=== PATIENT | female | born 1970 | race Caucasian/White ===

== ENCOUNTER 2016-07-19 09:09 | Emergency (ER) | payer OTHER | END 2016-07-19 10:52 | disposition home or self-care (01) | LOC: ER 09:09 | DX: J42 Unspecified chronic bronchitis (principal); J84.9 Interstitial pulmonary disease, unspecified; R05 Cough; F17.210 Nicotine dependence, cigarettes, uncomplicated | CPT/HCPCS: 71020; 87070; 87400; 87880; 96372; 99283-25; J2930 ==

== ENCOUNTER 2016-09-09 15:11 | Emergency (ER) | payer OTHER ==
[2016-09-09 15:54] LABS: URINE BILIRUBIN NEGATIVE (NEGATIVE); URINE BLOOD 3+ (NEGATIVE); URINE GLUCOSE (UA) NORMAL (NORMAL); URINE KETONE NEGATIVE (NEGATIVE); URINE LEUKOCYTE ESTERASE 1+ (NEGATIVE); URINE NITRATE NEGATIVE (NEGATIVE); URINE PROTEIN 1+ (NEGATIVE); UROBILINOGEN NORMAL mg/dL (<1.0)
[2016-09-09 16:12] LABS: URINE RBC TNTC /[HPF] (0-2)
[2016-09-09 16:13] LABS: URINE BACTERIA TRACE (NONE SEEN); URINE SQUAMOUS EPITHELIAL CELL 0-10 /[HPF] (NONE SEEN)
[2016-09-09 18:26] LABS: BASO % 0.3 % (0.1-1.2); EOS # 0.1 10_X3_uL (0.0-0.4); EOS % 0.9 % (0.7-5.8); GRAN # 7.7 10_X3_uL (1.6-6.1); GRAN % 64.7 % (34.0-71.1); HEMATOCRIT 42.9 % (34-45); HEMOGLOBIN 14.6 g/dL (11.2-15.7); LYMPH # 2.9 10_X3_uL (1.2-3.7); MEAN CORPUSCULAR HEMOGLOBIN 32.5 pg (27.0-33.0); MEAN CORPUSCULAR VOLUME 95.5 fL (79-95); MEAN PLATELET VOLUME 10.7 fl (7.5-11.5); MONO # 1.2 10_X3_uL (0.2-0.9); MONO % 10.1 % (4.7-12.5); PLATELET COUNT 307 x10_3/uL (182-369); RED BLOOD COUNT 4.49 x10_6/uL (3.9-5.2); RED CELL DISTRIBUTION WIDTH 14.1 % (11.7-14.4); WHITE BLOOD COUNT 11.9 x10_3/uL (4.0-10.0)
[2016-09-09 18:51] LABS: BLOOD UREA NITROGEN 17 mg/dL (7-18); CALCIUM 9.5 mg/dL (8.7-10.7); CARBON DIOXIDE 24 mmol/L (21-32); CREATININE 0.6 mg/dL (0.6-1.3); GLUCOSE,RANDOM 88 mg/dL (70-99); POTASSIUM 4.1 mmol/L (3.5-5.1); SODIUM 142 mmol/L (136-145)
== END 2016-09-09 16:59 | disposition home or self-care (01) ==
LOC: ER 15:11
PROVIDERS: Emergency Medicine
DX: N20.1 Calculus of ureter (principal); R78.81 Bacteremia; R10.9 Unspecified abdominal pain; R30.0 Dysuria; K21.9 Gastro-esophageal reflux disease without esophagitis; E11.9 Type 2 diabetes mellitus without complications; I10 Essential (primary) hypertension; F41.9 Anxiety disorder, unspecified; G89.29 Other chronic pain; E78.5 Hyperlipidemia, unspecified; Z87.442 Personal history of urinary calculi; Z90.710 Acquired absence of both cervix and uterus; F17.210 Nicotine dependence, cigarettes, uncomplicated; Z88.0 Allergy status to penicillin; Z88.5 Allergy status to narcotic agent; Z79.899 Other long term (current) drug therapy; Z79.891 Long term (current) use of opiate analgesic; Z79.82 Long term (current) use of aspirin; Z79.84 Long term (current) use of oral hypoglycemic drugs
CPT/HCPCS: 36415; 74150; 80048; 81001; 85025; 87086; 96372; 99070; 99283-25

== ENCOUNTER 2017-01-10 18:44 | Observation (INO) | payer OTHER ==
[~2017-01-10] VITALS: Ht 149.9 cm; Wt 67.0 kg
[2017-01-10 19:42] LABS: BASO % 0.2 % (0.1-1.2); EOS % 0.3 % (0.7-5.8); GRAN % 91.4 % (34.0-71.1); HEMATOCRIT 42.4 % (34-45); HEMOGLOBIN 14.3 g/dL (11.2-15.7); LYMPH # 0.5 10_X3_uL (1.2-3.7); LYMPH % 4.9 % (19.3-51.7); MEAN CORPUSCULAR HEMOGLOBIN 32.1 pg (27.0-33.0); MEAN CORPUSCULAR HGB CONC 33.7 g/dL (32.0-36.0); MEAN CORPUSCULAR VOLUME 95.1 fL (79-95); MEAN PLATELET VOLUME 10.9 fl (7.5-11.5); MONO # 0.4 10_X3_uL (0.2-0.9); MONO % 3.2 % (4.7-12.5); PLATELET COUNT 238 x10_3/uL (182-369); RED BLOOD COUNT 4.46 x10_6/uL (3.9-5.2); RED CELL DISTRIBUTION WIDTH 14.1 % (11.7-14.4); WHITE BLOOD COUNT 10.9 x10_3/uL (4.0-10.0)
[2017-01-10 19:55] LABS: ALBUMIN 3.9 gm/dL (3.4-5.0); ALKALINE PHOSPHATASE 141 U/L (50-136); ALT/SGPT 106 U/L (3.5-33.9); AST/SGOT 99 U/L (7.04-26.96); BILIRUBIN,TOTAL 1.27 mg/dL (0.0-1.0); BLOOD UREA NITROGEN 9 mg/dL (7-18); CARBON DIOXIDE 24 mmol/L (21-32); CREATININE < 0.5 mg/dL (0.6-1.3); GLUCOSE,RANDOM 112 mg/dL (70-99); POTASSIUM 3.1 mmol/L (3.5-5.1); SODIUM 137 mmol/L (136-145); TOTAL PROTEIN 7.2 gm/dL (6.4-8.2)
[2017-01-11 07:13] LABS: HEMATOCRIT 39.4 % (34-45); HEMOGLOBIN 13.3 g/dL (11.2-15.7); MEAN CORPUSCULAR HGB CONC 33.8 g/dL (32.0-36.0); MEAN CORPUSCULAR VOLUME 94.7 fL (79-95); RED BLOOD COUNT 4.16 x10_6/uL (3.9-5.2); RED CELL DISTRIBUTION WIDTH 14.1 % (11.7-14.4); WHITE BLOOD COUNT 5.3 x10_3/uL (4.0-10.0)
[2017-01-11 07:33] LABS: AHDL CHOLESTEROL 43 mg/dL (>40); BLOOD UREA NITROGEN 8 mg/dL (7-18); CALCIUM 8.8 mg/dL (8.7-10.7); CARBON DIOXIDE 24 mmol/L (21-32); CHOLESTEROL 144 mg/dL (0-200); CREATININE < 0.5 mg/dL (0.6-1.3); GLUCOSE,RANDOM 127 mg/dL (70-99); LDL CHOLESTEROL 86 mg/dL (0-99); POTASSIUM 3.4 mmol/L (3.5-5.1); SODIUM 141 mmol/L (136-145); TRIGLYCERIDES 111 mg/dL (30-200)
[2017-01-11 11:39] LABS: URINE BILIRUBIN 1+ (NEGATIVE); URINE BLOOD TRACE (NEGATIVE); URINE GLUCOSE (UA) NORMAL (NORMAL); URINE KETONE NEGATIVE (NEGATIVE); URINE LEUKOCYTE ESTERASE TRACE (NEGATIVE); URINE NITRATE NEGATIVE (NEGATIVE); URINE PROTEIN TRACE (NEGATIVE)
[2017-01-11 12:05] LABS: URINE BACTERIA TRACE (NONE SEEN); URINE RBC 0-5 /[HPF] (0-2); URINE WBC 0-5 /[HPF] (0-5); URINE YEAST FEW (NONE SEEN)
[2017-01-12 03:24] LABS: HEMATOCRIT 38.8 % (34-45); MEAN CORPUSCULAR HGB CONC 33.5 g/dL (32.0-36.0); MEAN CORPUSCULAR VOLUME 95.6 fL (79-95); MEAN PLATELET VOLUME 10.9 fl (7.5-11.5); RED BLOOD COUNT 4.06 x10_6/uL (3.9-5.2); RED CELL DISTRIBUTION WIDTH 14.3 % (11.7-14.4); WHITE BLOOD COUNT 4.4 x10_3/uL (4.0-10.0)
[2017-01-12 03:35] LABS: BLOOD UREA NITROGEN 9 mg/dL (7-18); CARBON DIOXIDE 27 mmol/L (21-32); CREATININE 0.6 mg/dL (0.6-1.3); GLUCOSE,RANDOM 110 mg/dL (70-99); POTASSIUM 4.1 mmol/L (3.5-5.1); SODIUM 140 mmol/L (136-145)
[2017-01-13 11:10] LABS: HBS AG SCREEN Non Reactive (NR); HCV Non Reactive (NR)
== END 2017-01-12 15:39 | disposition home or self-care (01) ==
LOC: ER 18:44 → MS 22:10
PROVIDERS: General Practice; ADMIT Internal Medicine
DX: R65.10 Systemic inflammatory response syndrome (SIRS) of non-infectious origin without acute organ dysfunction (principal); R07.9 Chest pain, unspecified; I10 Essential (primary) hypertension; F41.9 Anxiety disorder, unspecified; E78.5 Hyperlipidemia, unspecified; E11.9 Type 2 diabetes mellitus without complications; K21.9 Gastro-esophageal reflux disease without esophagitis; E87.6 Hypokalemia; R50.9 Fever, unspecified; R51 Headache; R74.0 Nonspecific elevation of levels of transaminase and lactic acid dehydrogenase [LDH]; Z90.49 Acquired absence of other specified parts of digestive tract; Z90.710 Acquired absence of both cervix and uterus; Z98.890 Other specified postprocedural states; Z88.0 Allergy status to penicillin; Z88.5 Allergy status to narcotic agent; Z79.899 Other long term (current) drug therapy; Z79.82 Long term (current) use of aspirin; Z79.1 Long term (current) use of non-steroidal anti-inflammatories (NSAID); Z79.84 Long term (current) use of oral hypoglycemic drugs
CPT/HCPCS: 36415; 70450; 71010; 71260; 76705; 80048; 80053; 80061; 80074; 80307; 81001; 82962; 83036; 83605; 83735; 85025; 85379; 86738; 87040; 87400; 87449; 93005; 94664; 96366; 96367; 96372; 99070; 99285-25; G0378; J7040; Q9967